=== PATIENT | female | born 1950 | race Caucasian/White ===

== ENCOUNTER 2016-10-29 13:16 | Emergency (ER) | payer OTHER, MEDICAID ==
[~2016-10-29] VITALS: Ht 160 cm; Wt 70.5 kg
[2016-10-29 14:24] VITALS: BP 125/71
== END 2016-10-29 15:37 | disposition home or self-care (01) ==
LOC: ED 13:16
DX: G89.29 Other chronic pain (principal); M54.5 Low back pain; I10 Essential (primary) hypertension; E78.00 Pure hypercholesterolemia, unspecified